=== PATIENT | female | born 2000 | race Caucasian/White ===

== ENCOUNTER 2021-01-03 21:12 | Emergency (ER) | payer BC ==
[~2021-01-03] VITALS: Ht 175.3 cm; Wt 56.4 kg
[2021-01-03 21:29] VITALS: Ht 175.3 cm; Wt 56.4 kg
[2021-01-03] MEDS ORDERED: ZOFRAN4 MG PO (21:33)
[2021-01-03] MEDS ORDERED: BIRTH CONTROL (21:33)
[2021-01-03 23:02] LABS: BILIRUBIN NEGATIVE (NEGATIVE); KETONE NEGATIVE mg/dL (< 1+); NITRITE NEGATIVE (NEGATIVE); UROBILINOGEN NORMAL mg/dL (< 2)
[2021-01-03 23:08] LABS: HCG URINE NEGATIVE (NEGATIVE)
[2021-01-03 23:09] LABS: BASOPHILS 1.1 % (0-2); EOSINOPHILS 6.6 % (0-7); HEMATOCRIT 40.6 % (36.0-48.0); HEMOGLOBIN 13.3 g/dL (12-16); MCH 28.8 pg (26.0-34.0); MCHC 32.9 g/dL (31.0-37.0); MCV 87.7 fL (80.0-100.0); MEAN PLATELET VOLUME 8.9 fL (7.4-10.4); MONOCYTES 9.1 % (2-11); NEUTROPHILS 63.2 % (40-80); PLATELET COUNT 329 10x3/uL (130-400); RBC 4.63 10x6/uL (4.00-5.40); RDW 13.4 % (11.5-14.5); WBC 9.4 10x3/uL (4.8-10.8)
[2021-01-03 23:12] LABS: BACTERIA MODERATE HPF (<MOD); SQUAMOUS EPITHELIAL 5 HPF (0-4); WHITE CELLS - URINE 25 HPF (0-4)
[2021-01-03 23:22] LABS: CALC OSMOLALITY 280 mosm/kg (275-300); CALCIUM 8.5 mg/dL (8.5-10.1); CHLORIDE - SERUM 106 mmol/L (98-107); CREATININE - SERUM 0.8 mg/dL (0.6-1.3); GLUCOSE 97 mg/dL (74-106); POTASSIUM - SERUM 3.8 mmol/L (3.5-5.1); SODIUM 141 mmol/L (136-145); UREA NITROGEN 13 mg/dL (7-18); eGFR NON AFRICAN AMERICAN > 90 mL/min (90-120)
[2021-01-03 23:36] LABS: ALBUMIN 3.3 g/dL (3.4-5.0); ALKALINE PHOSPHATASE 100 U/L (30-120); ALT (SGPT) 89 U/L (10-68); BILIRUBIN - TOTAL 0.16 mg/dL (0.2-1.3); PROTEIN - SERUM 7.1 g/dL (6.4-8.2)
[2021-01-03] MEDS ORDERED: MACROBID100 MG PO (23:40)
[2021-01-03 23:51] VITALS: BP 120/81
== END 2021-01-03 23:52 | disposition home or self-care (01) ==
LOC: D.ER 21:12
PROVIDERS: Family Medicine
DX: N39.0 Urinary tract infection, site not specified (principal); R42 Dizziness and giddiness; K76.0 Fatty (change of) liver, not elsewhere classified